=== PATIENT | female | born 1960 | race Caucasian/White ===

== ENCOUNTER 2017-09-15 12:56 | Emergency (ER) | payer MEDICARE ==
[~2017-09-15] VITALS: Ht 162.6 cm; Wt 65.8 kg
[2017-09-15 12:59] VITALS: Ht 162.6 cm; Wt 65.8 kg
[2017-09-15] MEDS ORDERED: CELEBREX200 MG PO (13:03)
[2017-09-15] MEDS ORDERED: NEURONTIN 400400 MG PO (13:03)
[2017-09-15] MEDS ORDERED: LEXAPRO20 MG PO (13:03)
[2017-09-15] MEDS ORDERED: CYCLOBENZAPRINE10 MG PO (13:03)
[2017-09-15] MEDS ORDERED: PERCOCET 10/3251 TA1 PO (13:03)
[2017-09-15] MEDS ORDERED: ZANTAC300 MG PO (13:04)
[2017-09-15] MEDS ORDERED: HYDROCODON-ACE1 EAC7 PO (16:26)
[2017-09-15 16:56] VITALS: BP 139/74
== END 2017-09-15 16:56 | disposition home or self-care (01) ==
LOC: D.ER 12:56
DX: S16.1XXA Strain of muscle, fascia and tendon at neck level, initial encounter (principal); W10.9XXA Fall (on) (from) unspecified stairs and steps, initial encounter; Y93.89 Activity, other specified; Y92.019 Unspecified place in single-family (private) house as the place of occurrence of the external cause; S00.03XA Contusion of scalp, initial encounter; M54.5 Low back pain; Z86.73 Personal history of transient ischemic attack (TIA), and cerebral infarction without residual deficits; K21.9 Gastro-esophageal reflux disease without esophagitis

== ENCOUNTER 2018-11-18 11:35 | Observation (INO) | payer OTHER, MEDICAID ==
[~2018-11-18] VITALS: Ht 162.6 cm; Wt 56.4 kg
[2018-11-18] VITALS (7 sets, daily range): BP systolic 105–138; BP diastolic 52–74; Ht 162.6 cm; Wt 56.4 kg
[~2018-11-18 11:35] MED LIST: CELEBREX200 MG PO; CYCLOBENZAPRINE10 MG PO; HYDROCODON-ACE1 EAC7 PO; LEXAPRO20 MG PO; NEURONTIN 400400 MG PO; PERCOCET 10/3251 TA1 PO; ZANTAC300 MG PO
[2018-11-18 11:51] LABS: BASOPHILS 0.3 % (0-2); EOSINOPHILS 2.7 % (0-7); HEMATOCRIT 37.8 % (36.0-48.0); HEMOGLOBIN 12.1 g/dL (12-16); LYMPHOCYTES 30.5 % (15-50); MCH 31.8 pg (26.0-34.0); MCV 99.2 fL (80.0-100.0); MEAN PLATELET VOLUME 9.9 fL (7.4-10.4); MONOCYTES 10.4 % (2-11); NEUTROPHILS 56.1 % (40-80); PLATELET COUNT 254 10x3/uL (130-400); RBC 3.81 10x6/uL (4.00-5.40); RDW 13.1 % (11.5-14.5); WBC 7.1 10x3/uL (4.8-10.8)
[2018-11-18 12:01] LABS: INR 0.97 (0.85-1.17); PROTIME 12.4 SECONDS (11.6-15.0)
[2018-11-18 12:06] LABS: ALBUMIN 4.1 g/dL (3.4-5.0); ALKALINE PHOSPHATASE 83 U/L (46-116); ALT (SGPT) 13 U/L (10-68); BILIRUBIN - TOTAL 0.29 mg/dL (0.2-1.3); CALC OSMOLALITY 280 mosm/kg (275-300); CARBON DIOXIDE 31.4 mmol/L (21.0-32.0); CHLORIDE - SERUM 104 mmol/L (98-107); CREATININE - SERUM 0.8 mg/dL (0.6-1.3); GLUCOSE 81 mg/dL (74-106); POTASSIUM - SERUM 3.7 mmol/L (3.5-5.1); PROTEIN - SERUM 7.3 g/dL (6.4-8.2); SODIUM 142 mmol/L (136-145); UREA NITROGEN 9 mg/dL (7-18); eGFR NON AFRICAN AMERICAN 77 mL/min (90-120)
[2018-11-18 12:18] LABS: CKMB 0.8 U/L (0.0-3.6); CREATINE KINASE 79 UL (21-215); MAGNESIUM - SERUM 2.5 mg/dL (1.8-2.4); TROPONIN-I < 0.017 ng/mL (0.000-0.060)
[2018-11-18 13:53] LABS: CKMB 0.7 U/L (0.0-3.6); CREATINE KINASE 77 UL (21-215)
[2018-11-18 13:54] LABS: TROPONIN-I < 0.017 ng/mL (0.000-0.060)
--- NOTE | 2018-11-18 14:15 | NUR ---
2 PERSON ASSIST ONTO BEDSIDE COMMODE.
--- NOTE | 2018-11-18 14:19 | NUR ---
REPORT TO KARLO CHAVEZ BY SBAR FORMAT
--- NOTE | 2018-11-18 14:34 | NUR ---
TRANSFER FROM ER BY STRETCHER. OREINTED TO ROOM. CALL LIGHT IN REACH. WILL CONT. PLAN OF CARE.
[2018-11-18] MEDS ORDERED: SKELAXIN800 MG PO (14:44)
[2018-11-18] MEDS ORDERED: NEURONTIN 300300 MG PO (14:47)
[2018-11-18] MEDS ORDERED: FLUTICASONE PRO16 GM NASAL (14:49)
[2018-11-18] MEDS ORDERED: KLONOPIN0.5 MG PO (14:49)
[2018-11-18] MEDS ORDERED: ATROVENT HFA12.9 GM INH (14:51)
[2018-11-18] MEDS ORDERED: PROVIGIL100 MG PO (14:56)
--- NOTE | 2018-11-18 20:07 | NUR ---
INITIAL ROUNDS AND ASSESSMENT COMPLETED. PT RESTING IN BED. ALERT/ORIENTED. PIV TO RIGHT A/C SALINE LOCKED. O2 @ 2L/NC WITH NONLABORED RESPIRATIONS. BED ALARM IN PLACE. CPOC.
[2018-11-18 20:08] LABS: CKMB 0.6 U/L (0.0-3.6); CREATINE KINASE 76 UL (21-215)
[2018-11-18 20:10] LABS: TROPONIN-I < 0.017 ng/mL (0.000-0.060)
--- NOTE | 2018-11-18 22:35 | NUR ---
ALL BEDTIME MEDS GIVEN. PT REQUESTED SKELAXIN/NORCO/KLONOPIN TO HELP HER SLEEP AND FOR CHRONIC PAIN TO LEFT SHOULDER/BREAST AREA. CPOC.
[2018-11-19] VITALS: BP 124/78
[2018-11-19 02:36] LABS: BASOPHILS 0.4 % (0-2); EOSINOPHILS 4.5 % (0-7); HEMATOCRIT 35.1 % (36.0-48.0); HEMOGLOBIN 10.9 g/dL (12-16); IMMATURE GRANULOCYTES 0.2 % (0-5); LYMPHOCYTES 42.5 % (15-50); MCH 30.9 pg (26.0-34.0); MCHC 31.1 g/dL (31.0-37.0); MCV 99.4 fL (80.0-100.0); MEAN PLATELET VOLUME 9.7 fL (7.4-10.4); MONOCYTES 9.1 % (2-11); NEUTROPHILS 43.3 % (40-80); PLATELET COUNT 236 10x3/uL (130-400); RBC 3.53 10x6/uL (4.00-5.40); RDW 13.1 % (11.5-14.5)
[2018-11-19 02:39] LABS: WBC 5.1 10x3/uL (4.8-10.8)
[2018-11-19 02:59] LABS: ALBUMIN 3.4 g/dL (3.4-5.0); ALKALINE PHOSPHATASE 70 U/L (46-116); ALT (SGPT) 10 U/L (10-68); BILIRUBIN - TOTAL 0.32 mg/dL (0.2-1.3); CALC OSMOLALITY 283 mosm/kg (275-300); CALCIUM 8.7 mg/dL (8.5-10.1); CARBON DIOXIDE 30.3 mmol/L (21.0-32.0); CHLORIDE - SERUM 106 mmol/L (98-107); CKMB 0.5 U/L (0.0-3.6); CREATINE KINASE 55 UL (21-215); CREATININE - SERUM 0.7 mg/dL (0.6-1.3); GLUCOSE 95 mg/dL (74-106); POTASSIUM - SERUM 3.9 mmol/L (3.5-5.1); PROTEIN - SERUM 6.2 g/dL (6.4-8.2); SODIUM 143 mmol/L (136-145); TROPONIN-I < 0.017 ng/mL (0.000-0.060); UREA NITROGEN 10 mg/dL (7-18); eGFR NON AFRICAN AMERICAN 90 mL/min (90-120)
[2018-11-19 04:00] VITALS: BP 101/55
--- NOTE | 2018-11-19 07:15 | NUR ---
RECEIVED PT IN BED AAOX4 RESP UNLABORED SKIN W/D COLOR WNL DENIES ANY NEEDS OR DISCOMFORT WILL CONTINUE TO MONITOR
[2018-11-19 08:00] VITALS: BP 118/74
[2018-11-19 12:00] VITALS: BP 103/63
--- NOTE | 2018-11-19 13:00 | NUR ---
REVIEWED DISCHARGE INSTRUCTIONS WITH PT STATES UNDERSTANDING COPY GIVEN SALINE LOCK DCD TO RAC WITH IV CATHETER SITE FREE OF REDNESS OR EDEMA PT DISCHARGED HOME IN STABLE CONDITION WITH ALL PERSONAL BELONGINGS VIA W/C
--- NOTE | 2018-11-19 16:59 | MORECARE ---
CASE MANAGEMENT DISCHARGE SUMMARY PATIENT: ANGIE SMITH MADDY UNIT: [id number] ADM DATE: 11/18/18 AGE: 58 : 56 SEX: F ROOM/BED: D.[facility]2 AUTHOR: ROXY COLLINS PHYSICIAN: REFERRING PHYSICIAN: EDIWN SANTANA MD DATE OF SERVICE: 11/19/18 Discharge Plan Patient Name: ANGIE SMITH Facility: [facility]:[place] : 1960 Planned Disposition: Home with Home Health Anticipated Discharge Date: 11/19/18 Discharge Date: 11/19/2018 Expected LOS: 1 Initial Reviewer: [email or web address] Initial Review Date: 11/18/2018 Generated: 11/19/18 5:59 pm DCPIA - Discharge Planning Initial Assessment Updated by [email or web address]: Kacie Rondon on 11/19/18 4:56 pm * Is the patient Alert and Oriented? Yes * How many steps to enter\exit or inside your home? NONE * PCP DR GUERRIER * Pharmacy [facility] ON [address] * Preadmission Environment Home Alone * ADLs Partial Dependent * Partial ADLs (Assistance needed) Bathing Dressing * Equipment Cane * Other Equipment ROLLATOR * List name and contact numbers for known caregivers / representatives who currently or will assist patient after discharge: [facility] FOR [facility] [employer] [facility] * Verbal permission to speak to the caregivers and representatives has been obtained from the patient. No * Community resources currently utilized Other * Please name any agencies selected above. [facility]IL[facility] * Additional services required to return to the preadmission environment? Yes * Can the patient safely return to the preadmission environment? Yes * Has this patient been hospitalized within the prior 30 days at any hospital? No Coverage Notice Reviewer: [id number] - Danielle Griggs Notice Issued Date-Time: 11/18/2018 13:20 Notice Type: Medicare Outpatient Observation Notice Notice Delivered To: Patient Relationship to Patient: Self Military Analyst Name: Angie Smith Delivery Method: HAND - Hand Delivered Parul Days: Prior Verbal Notification: Recipient Understood Notice: Yes Recipient Signature: Yes Med Rec Note Co-signed by Attending: Coverage Notice Comment: SCHULTZ delivered/signed per patient. Patient Name: ANGIE SMITH Page [phone] at 1659 All edits/amendments must be made on the electronic document DICTATION DATE: 11/19/181658 FIELD ARTILLERY BASIC: CHACORTA 11/19/181658 RPT#: [id number] DC DATE:11/19/18 STATUS: DIS IN [facility] [address] [place] [address] END OF REPORT
--- NOTE | 2018-11-19 17:06 | MORECARE ---
CASE MANAGEMENT DISCHARGE SUMMARY PATIENT: ANGIE SMITH UNIT: [id number] ADM DATE: 11/18/18 AGE: 58 : 56 SEX: F ROOM/BED: D.9633 AUTHOR: DENNIS,DOC PHYSICIAN: REFERRING PHYSICIAN: EDWIN SANTANA MD DATE OF SERVICE: 11/19/18 Discharge Plan Patient Name: ANGIE SMITH Facility: [facility]:[place] : 1960 Planned Disposition: Home with Home Health Anticipated Discharge Date: 11/19/18 Discharge Date: 11/19/2018 Expected LOS: 1 Initial Reviewer: [email or web address] Initial Review Date: 11/18/2018 Generated: 11/19/18 6:05 pm Comments DCP- Discharge Planning Updated by [email or web address]: Kacie Rondon on 11/19/18 4:[address] CM MET WITH THE PATIENT. EXPLAINED ROLE AND REQUEST PERMISSION TO ASSIST WITH DISCHARGE PLANNING. THE PATIENT IS RETURN TO HOME. LIVES ALONE . HAS A CAT AND A DOG. SHE RECEIVES [facility] THRU [facility]. HAS ASSISTANCE THRU [facility]IL[facility]. ADHESIVE SPRAYER HOURS ARE 0900- 1300 UP TO 94 HRS A MONTH. ADVISED THE DOCTOR HAD REQUESTED HOME HEALTH SERVICES. PROVIDED HER WITH THE HOME HEALTH PROVIDER LIST. SHE SELECTED [facility]. POC SIGNED 2 ORIGINALS. ONE FOR THE PATIENT AND ONE FOR THE HARD COVER CHART. SHE HAS TRANSPORTATION TO HOME WITH A FRIEND. [facility]. TC TO [facility]. REC CB FROM [facility]. REFERRAL DISCUSSED. PATIENT WILL BE SEEN ON WEDNESDAY. CM FAXED CLINICAL , MED LIST AND DISCHARGE ORDERS TO [phone]. DCPIA - Discharge Planning Initial Assessment Updated by [email or web address]: Kacie Rondon on 11/19/18 4:56 pm * Is the patient Alert and Oriented? Yes * How many steps to enter\exit or inside your home? NONE * PCP DR GUERRIER * Pharmacy [facility] ON [address] * Preadmission Environment Home Alone * ADLs Partial Dependent * Partial ADLs (Assistance needed) Bathing Dressing * Equipment Cane * Other Equipment ROLLATOR * List name and contact numbers for known caregivers / representatives who currently or will assist patient after discharge: [facility] FOR NAN[employer] ENGINEERING TECHNICIAN CARE [facility] * Verbal permission to speak to the caregivers and representatives has been obtained from the patient. No * Community resources currently utilized Other * Please name any agencies selected above. [facility] * Additional services required to return to the preadmission environment? Yes * Can the patient safely return to the preadmission environment? Yes * Has this patient been hospitalized within the prior 30 days at any hospital? No Coverage Notice Reviewer: [id number] Marcia Griggs Notice Issued Date-Time: 11/18/2018 13:20 Notice Type: Medicare Outpatient Observation Notice Notice Delivered To: Patient Relationship to Patient: Self Derrick Builder Name: Angie Smith Delivery Method: HAND - Hand Delivered Parul Days: Prior Verbal Notification: Recipient Understood Notice: Yes Recipient Signature: Yes Med Rec Note Co-signed by Attending: Coverage Notice Comment: SCHULTZ delivered/signed per patient. Last DP export: 11/19/18 3:59 p Patient Name: ANGIE SMITH Page [phone] at 1706 All edits/amendments must be made on the electronic document DICTATION DATE: 11/19/181704 MORTGAGE LOAN PROCESSING CLERK: CHACORTA 11/19/181704 RPT#: [id number] DC DATE:11/19/18 STATUS: DIS IN [facility] [address] [place] [address] END OF REPORT
--- NOTE | 2018-11-21 09:20 | MORECARE ---
CASE MANAGEMENT DISCHARGE SUMMARY PATIENT: ANGIE SMITH UNIT: [id number] ADM DATE: 11/18/18 AGE: 58 : 56 SEX: F ROOM/BED: D.3422 AUTHOR: DENNIS,DOC PHYSICIAN: REFERRING PHYSICIAN: EDWIN SANTANA MD DATE OF SERVICE: 11/21/18 Discharge Plan Patient Name: ANGIE SMITH Facility: [facility]:[place] : 1960 Planned Disposition: Home with Home Health Anticipated Discharge Date: 11/19/18 Discharge Date: 11/19/2018 Expected LOS: 1 Initial Reviewer: [email or web address] Initial Review Date: 11/18/2018 Generated: 11/21/18 10:19 am Comments DCP- Discharge Planning Updated by [email or web address]: Kaice Rondon on 11/19/18 4:[address] CM MET WITH THE PATIENT. EXPLAINED ROLE AND REQUEST PERMISSION TO ASSIST WITH DISCHARGE PLANNING. THE PATIENT IS RETURN TO HOME. LIVES ALONE . HAS A CAT AND A DOG. SHE RECEIVES [facility] THRU [facility]. HAS ASSISTANCE THRU [facility]. CORRECTIONAL OFFICER LIEUTENANT HOURS ARE 0900- 1300 UP TO 94 HRS A MONTH. ADVISED THE DOCTOR HAD REQUESTED HOME HEALTH SERVICES. PROVIDED HER WITH THE HOME HEALTH PROVIDER LIST. SHE SELECTED [facility]. POC SIGNED 2 ORIGINALS. ONE FOR THE PATIENT AND ONE FOR THE HARD COVER CHART. SHE HAS TRANSPORTATION TO HOME WITH A FRIEND. [facility]. TC TO [facility]. REC CB FROM [facility]. REFERRAL DISCUSSED. PATIENT WILL BE SEEN ON WEDNESDAY. CM FAXED CLINICAL , MED LIST AND DISCHARGE ORDERS TO [phone]. DCPIA - Discharge Planning Initial Assessment Updated by [email or web address]: Kacie Rondon on 11/19/18 4:56 pm * Is the patient Alert and Oriented? Yes * How many steps to enter\exit or inside your home? NONE * PCP DR GUERRIER * Pharmacy [facility] ON [address] * Preadmission Environment Home Alone * ADLs Partial Dependent * Partial ADLs (Assistance needed) Bathing Dressing * Equipment Cane * Other Equipment ROLLATOR * List name and contact numbers for known caregivers / representatives who currently or will assist patient after discharge: [facility] * Verbal permission to speak to the caregivers and representatives has been obtained from the patient. No * Community resources currently utilized Other * Please name any agencies selected above. [facility]IL[facility] * Additional services required to return to the preadmission environment? Yes * Can the patient safely return to the preadmission environment? Yes * Has this patient been hospitalized within the prior 30 days at any hospital? No Coverage Notice Reviewer: [id number] Marcia Griggs Notice Issued Date-Time: 11/18/2018 13:20 Notice Type: Medicare Outpatient Observation Notice Notice Delivered To: Patient Relationship to Patient: Self Top And Trim Worker Name: Angie Smith Delivery Method: HAND - Hand Delivered Parul Days: Prior Verbal Notification: Recipient Understood Notice: Yes Recipient Signature: Yes Med Rec Note Co-signed by Attending: Coverage Notice Comment: SCHULTZ delivered/signed per patient. Last DP export: 11/19/18 4:06 p Patient Name: ANGIE SMITH Page [phone] at 0920 All edits/amendments must be made on the electronic document DICTATION DATE: 11/21/18918 TICKET TAKER: CHACORTA 11/21/18918 RPT#: [id number] DC DATE:11/19/18 STATUS: DIS IN [facility] [address] [place] [address] END OF REPORT
== END 2018-11-19 13:00 | disposition home health service (06) ==
LOC: D.ER 11:35 → D.M2 13:06 → OBSVTIME 13:33 → D.M2 11-19 13:00
PROVIDERS: Family Medicine; ADMIT Family Medicine; ATTEND Family Medicine
DX: S29.011A Strain of muscle and tendon of front wall of thorax, initial encounter (principal); W19.XXXA Unspecified fall, initial encounter; Z91.81 History of falling; Z86.73 Personal history of transient ischemic attack (TIA), and cerebral infarction without residual deficits; G35 Multiple sclerosis; R07.89 Other chest pain

== ENCOUNTER → 2020-05-28 13:01 | Outpatient (CLI) | payer OTHER, MEDICAID ==
[2018-11-18 15:03] VITALS: BMI 21.3
[~2020-05-28 13:01] MED LIST changes: +ATROVENT HFA12.9 GM INH; +FLUTICASONE PRO16 GM NASAL; +KLONOPIN0.5 MG PO; +NEURONTIN 300300 MG PO; +PROVIGIL100 MG PO; +SKELAXIN800 MG PO
== END | disposition home or self-care (01) ==
LOC: D.MRI 05-24 13:00
PROVIDERS: ATTEND Clinical Nurse Specialist Family Health
DX: M25.511 Pain in right shoulder (principal)

== ENCOUNTER 2020-08-09 07:24 | Day surgery (SDC) | payer OTHER, MEDICAID ==
[~2020-08-09] VITALS: Ht 162.6 cm; Wt 59.0 kg
[~2020-08-09 07:24] MED LIST changes: +FROVA; +HYDROCODON-ACE1 EA10 PO; +MELATONIN 3 MG1 TAB PO; -NEURONTIN 300300 MG PO; +PEPCID AC20 MG PO; +VENTOLIN HFA [SP8 GM INH; +ZYRTEC10 MG PO
[2020-08-09 08:14] LABS: BASOPHILS 1.1 % (0-2); EOSINOPHILS 3.9 % (0-7); HEMATOCRIT 34.5 % (36.0-48.0); HEMOGLOBIN 11.4 g/dL (12-16); MCV 93.9 fL (80.0-100.0); MEAN PLATELET VOLUME 7.8 fL (7.4-10.4); MONOCYTES 10.1 % (2-11); NEUTROPHILS 49.9 % (40-80); PLATELET COUNT 260 10x3/uL (130-400); RBC 3.68 10x6/uL (4.00-5.40); RDW 14.3 % (11.5-14.5); WBC 4.5 10x3/uL (4.8-10.8)
[2020-08-09 09:30] VITALS: BP 132/78; Ht 162.6 cm; Wt 59.0 kg
--- NOTE | 2020-08-09 19:12 | NUR ---
EFFECTED NERVE BLOCK. SLING AND WAIST SWATH IN PLACE. DISCHARGE INSTRUCTIONS GIVEN AND PT VERBALIZED AN UNDERSTANDING. IV D/C'D WITH CANNULA INTACT, PRESSURE HELD AND DRSG PLACED
--- NOTE | 2020-08-10 08:20 | OP ---
PATIENT NAME: ANGIE SMITH MEDICAL RECORD: [id number] :56 LOCATION:[facility] ADMISSION DATE: SURGEON: NATE CABRERA DO DATE OF OPERATION: 08/09/2020 PROCEDURE PERFORMED: Biceps tenotomy as well as labral debridement and rotator cuff debridement. Right shoulder arthroscopy, rotator cuff tendon repair, distal clavicle excision and subacromial decompression. PREOPERATIVE DIAGNOSES: A distal clavicle fracture, partial thickness rotator cuff tear and a SLAP tear as well as subacromial impingement. POSTOPERATIVE DIAGNOSES: A distal clavicle fracture, partial thickness rotator cuff tear and a SLAP tear as well as subacromial impingement. INDICATIONS: Ms. Smith is a 60-year-old female who had a right shoulder distal clavicle fracture that was giving her quite a bit of pain. She had an MRI also to check for rotator cuff tendon tear and she had a partial thickness rotator cuff tendon tear in the supraspinatus as well as a SLAP tear and subacromial impingement and the distal clavicle fracture was seen also. I informed that we would remove the part of the distal clavicle so it did not rub on the acromion and give her problems. She was okay with that. She is also aware of the risks including infection, bleeding, frozen shoulder syndrome, continued pain, need for further surgery, damage to nerves or vessels in the area and she signed the consent. SURGEON: Nate Cabrera DO OPERATIVE PROCEDURE: The patient was given a block by anesthesia in the preoperative area and taken to the operative suite, moved to the left lateral decubitus position with the right shoulder up. She was given 900 mg of clindamycin. The right shoulder was prepped and draped in sterile fashion. A timeout was performed and everyone was in agreement with correct side, site, patient and procedure. I then established the posterior portal with an 18-gauge spinal needle and inflated the joint with 60 cc of normal saline. I then established a posterior portal with an 11-blade scalpel. Trocar was then brought into the joint. I then established an anterior portal with an 18-gauge spinal needle and 11-blade scalpel. Trocar was then brought in. I saw a large SLAP tear. I then brought in a burner. I saw the biceps tendon had pretty much adhered to the rotator interval, I then did a biceps tenotomy at that point just removing it from the labrum really freeing up the SLAP tear. I then debrided the labrum with a ambulatory technologist. I then saw the partial thickness articular-sided tear of the supraspinatus and debrided it with a shaver. I then checked the subscapularis for skin repair and there is nothing in the inferior gutter. The joint looked good. I then went to the subacromial space and established a lateral portal with an 18-gauge spinal needle an 11-blade scalpel. Trocar was then brought in and then did a subacromial decompression with acromioplasty, bursectomy and then through the anterior portal, distal clavicle excision, opening up the AC joint to approximately 7 mm. I then went back into the joint, marked the articular-sided tear with an 18-gauge spinal needle. I then opened the lateral portal with 15 blade scalpel and then blunt dissection down to the tear with two [employer] and cleaned off the bursa and then placed a medium Regeneten over the tear and stable it into place and then irrigated. Johan Bernal, certified pedorthotist closed with 2-0 Vicryl in inverted interrupted fashion, 4-0 Monocryl ran on the skin and 4-0 Monocryl on the portal OPERATIVE REPORT [id number] ANGIE SMITH sites in interrupted fashion. She was then dressed with Dermabond, Telfa, and Tegaderm put in a sling, awakened and taken to recovery in stable condition. BLOOD LOSS: Minimal. COMPLICATIONS: None. TRANSINT:[id number] Voice Confirmation ID: [id number] DOCUMENT ID: [id number] NATE CABRERA DO at 0820 CC: [id number] DICTATION DATE: 08/09/201803 FIRM ADMINISTRATOR: 08/10/20 0307 [facility] 08/09/[address] [facility] [address] [place] [address]
== END 2020-08-09 16:10 | disposition home or self-care (01) ==
LOC: D.OPS 07:24
PROVIDERS: Anesthesiology; ATTEND Orthopaedic Surgery
DX: M75.101 Unspecified rotator cuff tear or rupture of right shoulder, not specified as traumatic (principal); M75.41 Impingement syndrome of right shoulder; S42.031A Displaced fracture of lateral end of right clavicle, initial encounter for closed fracture; S43.431A Superior glenoid labrum lesion of right shoulder, initial encounter; X58.XXXA Exposure to other specified factors, initial encounter